=== PATIENT | male | born 1975 | race Caucasian/White ===

== ENCOUNTER 2018-12-26 20:51 | Inpatient (IN) ==
[2018-12-26] MEDS ORDERED: *HR* LORazepam 2 MG/ML VIAL ONE (20:58)
[2018-12-26 21:27] LABS: Basophils # 0.1 K/mcL (0.0-0.2); Basophils % 0.9 %; Eosinophils # 0.5 K/mcL (0.0-0.6); Eosinophils % 3.4 %; Hematocrit 45.7 % (37.5-50.1); Hemoglobin 14.3 g/dL (12.9-16.9); Immature Granulocytes % 0.4 % (0-4); Lymphocytes # 5.2 K/mcL (0.6-4.6); Lymphocytes % 32.9 %; Mean Corpuscular HGB Conc 31.3 g/dL (31.6-35.5); Mean Corpuscular Hemoglobin 28.2 pg (28.0-33.3); Mean Corpuscular Volume 90.1 fL (83.0-100.0); Mean Platelet Volume 8.9 fL (9.4-12.4); Monocytes # 1.4 K/mcL (0.0-1.3); Neutrophils # 8.5 K/mcL (1.6-8.9); Platelet Count 425 K/mcL (140-400); Red Blood Count 5.07 M/mcL (4.19-5.50); Red Cell Distribution Width 12.2 % (11.5-14.5); Segmented Neutrophils % 53.4 %; White Blood Count 15.9 K/mcL (4.3-11.1)
[2018-12-26 21:47] LABS: Acetaminophen < 10 mcg/mL (10-20); BUN/Creatinine Ratio 10 (6-26); Blood Urea Nitrogen 14 mg/dL (6-20); Calcium 9.7 mg/dL (8.6-10.3); Carbon Dioxide 13 mEq/L (23-29); Chloride 97 mEq/L (98-107); Ethanol < 10 mg/dL (Less than 10); Glucose 134 mg/dL (70-105); Osmolality,Calculated 284 (280-300); Potassium 3.6 mEq/L (3.5-5.1); Salicylate < 2.5 mg/dL (15.0-30.0); Sodium 136 mEq/L (136-145); eGFR For African Americans > 60 (> 60); eGFR For Non-African Americans 58 (> 60)
--- NOTE | 2018-12-26 21:52 | Emergency Department Note ---
Disposition Clinical Impression: Status epilepticus Disposition: Admitted As Inpatient Condition: Fair Time of Disposition: 23:45 Seizure HPI - General Stated Complaint: Siezure Time Seen by Provider: 12/26/18 21:03 Source: patient, EMS Mode of arrival: EMS Limitations: altered mental status Nursing Notes Reviewed: Yes Vital Signs Reviewed: Yes - History of Present Illness HPI Narrative: 43-year-old male past medical history of seizure disorder not currently on any medications presenting by EMS immediately after a seizure which occurred at work. 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 EMS states the patient was post ictal but stable during transportation. Upon presentation to the ED patient is alert, he is oriented to self but states that he feels "groggy." Patient is unable to give significant past medical history states that he does not know what medications he is on, our pharmacist is unable to find any current medications listed in the patient's file. Patient was last seen by resident physician Dr. Raymond Benavidez at the [facility] in April 2018, we have no follow- ups listed on file at this time. Patient had nose concerns or complaints during my initial review of systems and physical exam evaluation. Patient has a small laceration noted to his right frontal skull which is appropriately bandaged with a 2 x 2 gauze pad. This wound does not require suturing. After examining the patient leaving the room I was immediately called back by RN due to patient experiencing a repeat generalized tonic-clonic seizure. 2 mg of Ativan was ordered immediately administered to the patient, patient was rolled onto his left side in the left lateral decubitus position and oral suctioning was performed, patient was Reloaded with 1500 mg of Keppra for seizure prophylaxis. Patient did not lose control of bowels or bladder during the incident. Patient will be taken emergently for CT scan of the head and neck, will also undergo lab screening, EKG and chest x-ray. Pt Subjective Complaint: seizure Onset (ago): Just [facility] Description of Episode: loss of consciousness, tonic-clonic movement Witnessed: yes - by other Associated trauma secondary to event: Yes Seizure History: known seizure disorder Place: work Possible Precipitating Event: none Associated symptoms: Reports: denies other symptoms Treatments prior to arrival: none - Related Data Previous Rx's Medication Instructions Recorded Amoxicillin 500 mg PO TID #30 tablet 07/09/16 HYDROcodone/Acet 5/325 mg [[place] 1 tab PO Q6H PRN #10 tab 02/18/17 5-325 mg] Allergies Allergy/AdvReac Type Severity Reaction Status Date / Time tetanus and diphtheria Allergy Rash Verified 07/09/16 13:52 toxoids Review of Systems: *See History of Present Illness for more detail Constitutional: Denies: fever, chills Cardiovascular: Denies: chest pain Respiratory: Denies: dyspnea, cough, hemoptysis Gastrointestinal: Denies: abdominal pain, nausea, vomiting, diarrhea, constipation, hematemesis, melena, hematochezia Genitourinary: Denies: hematuria Musculoskeletal: Denies: back pain, neck pain Neurological: Denies: headache, weakness, lightheadedness/dizziness, numbness, paresthesias, difficulty with ambulation. Endocrine: Denies: fatigue All systems ED: reviewed and negative except as stated. Review of Systems: As Per HPI Past Medical History - Past Medical History Medical history: Reports: no medical history Psychiatric history: Reports: no psych history - Social History Smoking Status: Current every day smoker Smokeless Tobacco Status: Yes Alcohol use: Reports: occasionally Drug use: Reports: marijuana Physical Exam Constitutional: No acute distress, patient is alert to person only is unable to give month, year, or president, he is otherwise engaged to conversation, speech is fluid, answers questions appropriately, however he is unable to remember significant history of present illness or past medical history due to feeling "groggy". Neuro: GCS 15, no overt focal neurological deficits Head: Patient with minor laceration noted front of skull. Eyes: Pupils equal, round and reactive to light, no scleral icterus, no conjunctival injection Neck: Trachea midline without deviation. Anterior neck is supple without swelling. *Chest: Symmetric chest wall rise *Heart: Cardiac rhythm and rate are regular with S1 and S2 , no S3 or S4 appreciated, no murmurs, gallops, rubs, or clicks. *Lungs: Lungs are clear to auscultation bilaterally, without accessory muscle use or prolonged expiratory phase. No wheezes, rhonchi or stridor appreciated. Abdomen: Abdomen is flat, soft to palpation, normal bowel sounds. No abdominal bruit auscultated. Non-distended, non-rigid, no organomegaly, no ascites appreciated. No pulsatile mass, no tenderness or guarding to palpation in all four quadrants, no rebound Extremities: Normal capillary refill without evidence of pedal edema, joint swelling or erythema. Pulses/motor/sensory intact in all 4 extremities. Psychiatric exam: Patient displays a normal affect and mood for the environment. No overt signs of hallucination. Integumentary: warm, dry, intact, normal color. No rash, cyanosis, diaphoresis, erythema, or pallor Course Course Narrative: Concern for intracranial pathology patient will undergo CT scan of the head and neck, basic laboratory workup EKG, x-ray, toxicologies Treatments: IV fluids, Keppra, Ativan - Reevaluation(s) Reevaluation #1: Spoke with Dr. Abraham in neurology regarding current management of this patient. Dr. Abraham states that he has no further recommendations at this time. Dr. Abraham agrees with hospital admission with neurology consult. Neurology is consulted and is following. Vital Signs Temperature 99 F 12/26/18 21:08 Pulse Rate 119 12/26/18 21:08 Respiratory Rate 20 12/26/18 21:08 Blood Pressure 153/83 12/26/18 21:08 O2 Sat by Pulse Oximetry 97 12/26/18 21:08 Temperature 99 F 12/26/18 21:08 Pulse Rate 119 12/26/18 21:08 Respiratory Rate 20 12/26/18 21:08 Blood Pressure 153/83 12/26/18 21:08 O2 Sat by Pulse Oximetry 97 12/26/18 21:08 Oxygen Delivery Oxygen Delivery Oximizer Seizure - MDM Narrative Medical decision making narrative: Patient laboratory results are consistent with status epilepticus EKG, laboratory and imaging results are otherwise unremarkable. Patient appears post ictal in room, no lateralizing deficits appreciated. Patient be admitted to hospitalist medicine service for further evaluation and management of status epilepticus Patient is hemodynamically stable at the time of admission Dr. Barahona accepting admission. - Lab Data Lab results reviewed: Yes I reviewed the patient's lab results. Result diagrams: 12/26/18 21:16 12/26/18 21:16 Lab Results 12/26/18 12/26/18 Range/Units 21:16 21:16 WBC 15.9 H (4.3-11.1) K/mcL RBC 5.07 (4.19-5.50) M/mcL Hgb 14.3 (12.9-16.9) g/dL Hct 45.7 (37.5-50.1) % MCV 90.1 (83.0-100.0) fL MCH 28.2 (28.0-33.3) pg MCHC 31.3 L (31.6-35.5) g/dL RDW 12.2 (11.5-14.5) % Plt Count 425 H (140-400) K/mcL MPV 8.9 L (9.4-12.4) fL Immature Gran % 0.4 (0-4) % Seg Neutrophils % 53.4 % Lymphocytes % 32.9 % Monocytes % 9.0 % Eosinophils % 3.4 % Basophils % 0.9 % Neutrophils # 8.5 (1.6-8.9) K/mcL Lymphocytes # 5.2 H (0.6-4.6) K/mcL Monocytes # 1.4 H (0.0-1.3) K/mcL Eosinophils # 0.5 (0.0-0.6) K/mcL Basophils # 0.1 (0.0-0.2) K/mcL Sodium 136 (136-145) mEq/L Potassium 3.6 (3.5-5.1) mEq/L Chloride 97 L (98-107) mEq/L Carbon Dioxide 13 L (23-29) mEq/L BUN 14 (6-20) mg/dL Creatinine 1.36 H (0.70-1.30) mg/dL Est GFR ( Amer) > 60 (> 60) Est GFR (Non-Af Amer) 58 L (> 60) BUN/Creatinine Ratio 10 (6-26) Glucose 134 H (70-105) mg/dL Calculated Osmolality 284 (280-300) Calcium 9.7 (8.6-10.3) mg/dL Salicylates < 2.5 L (15.0-30.0) mg/dL Acetaminophen < 10 L (10-20) mcg/mL Ethyl Alcohol < 10 (Less than 10) mg/dL - Radiology Data Radiology results reviewed: Yes I reviewed the patient's radiology results. Cervical Spine CT 12/26/18 21:06 IMPRESSION: Head CT: No acute intracranial abnormality. Cervical spine CT: No acute abnormality. D/ / Al Langford MD / Al Langford MD Interpreting Provider: Al Langford MD Head CT 12/26/18 21:06 IMPRESSION: Head CT: No acute intracranial abnormality. Cervical spine CT: No acute abnormality. D/ / Al Langford MD / Al Langford MD Interpreting Provider: Al Langford MD Chest X-Ray 12/26/18 21:23 IMPRESSION: No acute process. D/ / Al Langford MD / Al Langford MD Interpreting Provider: Al Langford MD - EKG Data EKG attestation: Yes I reviewed and interpreted this EKG. EKG results narrative: Patient EKG shows a sinus tachycardia with left ventricular hypertrophy by voltage criteria with a heart rate of 12 4 bpm ND interval of 139 ms, QRS duration of 80 ms, QT/QTc interval 313/450 ms respectively. There are no significant ST segment elevations compared depressions compatible pathologic Q waves, there are abnormal T-wave inversions noted in lead 3 which may represent a normal variant, there are no signs of acute ischemic change. At this time there is no prior EKG available for comparison.
[2018-12-26] MEDS ORDERED: 0.9 % Sodium Chloride 1,000 ML IVC ONE (21:55)
[2018-12-26] MEDS ORDERED: *HR* LORazepam 2 MG/ML VIAL IVP ONE (21:55)
--- NOTE | 2018-12-26 23:04 | Emergency Department Note ---
Disposition Clinical Impression: Status epilepticus Disposition: Admitted As Inpatient Condition: Fair Time of Disposition: 23:45 General Adult HPI - General Chief complaint: ED Seizure Stated complaint: Siezure Time Seen by Provider: 12/26/18 21:03 Source: patient, EMS Mode of arrival: EMS Limitations: altered mental status Nursing Notes Reviewed: Yes Vital Signs Reviewed: Yes - History of Present Illness Pain Scale: 0 - Related Data Previous Rx's Medication Instructions Recorded Amoxicillin 500 mg PO TID #30 tablet 07/09/16 HYDROcodone/Acet 5/325 mg [[place] 1 tab PO Q6H PRN #10 tab 02/18/17 5-325 mg] Allergies Allergy/AdvReac Type Severity Reaction Status Date / Time tetanus and diphtheria Allergy Rash Verified 07/09/16 13:52 toxoids Past Medical History - Past Medical History Medical history: Reports: hypertension, seizures Psychiatric history: Reports: no psych history - Social History Smoking Status: Current every day smoker Smokeless Tobacco Status: Yes Alcohol use: Reports: occasionally Drug use: Reports: marijuana Physical Exam - General Limitations: altered mental status General appearance: alert, in no apparent distress Course Vital Signs Temperature 99 F 12/26/18 21:08 Pulse Rate 119 12/26/18 21:08 Respiratory Rate 20 12/26/18 21:08 Blood Pressure 153/83 12/26/18 21:08 O2 Sat by Pulse Oximetry 97 12/26/18 21:08 Temperature 99 F 12/26/18 21:08 Pulse Rate 95 12/27/18 00:03 Respiratory Rate 18 12/27/18 00:03 Blood Pressure 146/113 12/27/18 00:03 O2 Sat by Pulse Oximetry 100 12/27/18 00:03 Oxygen Delivery Oxygen Delivery Oximizer Medical Decision Making - Medical Records Medical records reviewed: Yes I reviewed the patient's medical records. - Lab Data Lab results reviewed: Yes I reviewed the patient's lab results. Result diagrams: 12/26/18 21:16 12/26/18 21:16 Lab Results 12/26/18 12/26/18 Range/Units 21:16 21:16 WBC 15.9 H (4.3-11.1) K/mcL RBC 5.07 (4.19-5.50) M/mcL Hgb 14.3 (12.9-16.9) g/dL Hct 45.7 (37.5-50.1) % MCV 90.1 (83.0-100.0) fL MCH 28.2 (28.0-33.3) pg MCHC 31.3 L (31.6-35.5) g/dL RDW 12.2 (11.5-14.5) % Plt Count 425 H (140-400) K/mcL MPV 8.9 L (9.4-12.4) fL Immature Gran % 0.4 (0-4) % Seg Neutrophils % 53.4 % Lymphocytes % 32.9 % Monocytes % 9.0 % Eosinophils % 3.4 % Basophils % 0.9 % Neutrophils # 8.5 (1.6-8.9) K/mcL Lymphocytes # 5.2 H (0.6-4.6) K/mcL Monocytes # 1.4 H (0.0-1.3) K/mcL Eosinophils # 0.5 (0.0-0.6) K/mcL Basophils # 0.1 (0.0-0.2) K/mcL Sodium 136 (136-145) mEq/L Potassium 3.6 (3.5-5.1) mEq/L Chloride 97 L (98-107) mEq/L Carbon Dioxide 13 L (23-29) mEq/L BUN 14 (6-20) mg/dL Creatinine 1.36 H (0.70-1.30) mg/dL Est GFR ( Amer) > 60 (> 60) Est GFR (Non-Af Amer) 58 L (> 60) BUN/Creatinine Ratio 10 (6-26) Glucose 134 H (70-105) mg/dL Calculated Osmolality 284 (280-300) Calcium 9.7 (8.6-10.3) mg/dL Salicylates < 2.5 L (15.0-30.0) mg/dL Acetaminophen < 10 L (10-20) mcg/mL Ethyl Alcohol < 10 (Less than 10) mg/dL - Radiology Data Radiology results reviewed: Yes I reviewed the patient's radiology results. Cervical Spine CT 12/26/18 21:06 IMPRESSION: Head CT: No acute intracranial abnormality. Cervical spine CT: No acute abnormality. D/ / Al Langford MD / Al Langford MD Interpreting Provider: Al Langford MD Head CT 12/26/18 21:06 IMPRESSION: Head CT: No acute intracranial abnormality. Cervical spine CT: No acute abnormality. D/ / Al Langford MD / Al Langford MD Interpreting Provider: Al Langford MD Chest X-Ray 12/26/18 21:23 IMPRESSION: No acute process. D/ / Al Langford MD / Al Langford MD Interpreting Provider: Al Langford MD - EKG Data EKG #1 EKG attestation: Yes I reviewed and interpreted this EKG. EKG results narrative: EKG showed sinus tachycardia with ventricular rate of 124. Mild inferior ST segment depressions. No ST elevations. No ectopy. Critical Care Time Critical Care Time: Yes Total Critical Care Time: 40 Attestation: Critical care performed: Time is exclusive of separately billable procedures. Time includes: direct pa tient care, patient reassessment, coordination of patient care, interpretation of data (laboratory data, radiology data, and respiratory data), review of patient's medical records, medical consultation and documentation of patient care. Procedures included in critical care time: Procedures excluded from critical care time: Attestation Statement - Attestation Attestation: I, Musa Gaming MD, personally evaluated this patient and discussed their management with the resident physician. I reviewed the resident's note and agree with the documented findings, medical decision making, and plan of care. I reviewed the residents documentation and agree with the residents assessment and plan of care. I have personally had face to face time with the patient. I personally supervised and was present for the mustafa/critical portions of the following procedures completed by the resident: EKG interpretation. 43-year-old male presents to the emergency department by EMS after he had a witnessed seizure shortly prior to arrival. Patient was at work when he apparently leaned over the bar and had a seizure and fell striking his head. The seizure reported lasted about a minute and resolved. Patient then woke up after the seizure. On arrival here the patient was alert but then shortly after arrival patient had a seizure here in the emergency department. This was a generalized tonic-clonic seizure which lasted about 30 seconds and then resolves spontaneously. Patient was postictal with snoring respirations. He did receive Ativan IV and then also received IV Keppra. Patient reportedly has a history of seizures. Girlfriend later arrived and reports that he has had seizures in the past but is not on any medications. She states his last seizure was about 3 years ago when she broke up with him and he had a seizure at that time which she thought was stress-related. Prior to that she thinks it was about 15 years ago when he had his last seizure. She states he is supposed to take blood pressure medication but has not been taking it recently. On examination patient is a well-developed well-nourished male who is postictal. He has snoring respirations. There is contusion and abrasions to the right forehead from where he fell earlier with the seizure prior to arrival. PERRLA. Mucous members are moist. Neck is supple. No lymphadenopathy. Breath sounds are clear and equal bilaterally. Heart regular with a mild tachycardia. Abdomen is soft with normal bowel sounds. No pedal edema. Labs reviewed. Chest x-ray negative. CT of the head and cervical spine was negative. EKG showed sinus tachycardia with ventricular rate of 124. Mild i nferior ST segment depressions. No ST elevations. No ectopy. The neurologist health and safety consultant, Dr. Abraham, was consulted and agreed with the treatment and recommended admission by the hospitalist and neurology will consult on the patient. The hospitalist, Dr. Barahona, was consulted and accepted admission of the patient.
[2018-12-26] MEDS ORDERED: *HR* LORazepam 2 MG/ML VIAL IVP PRN (23:34)
[2018-12-26] MEDS ORDERED: Acetaminophen 325 MG TABLET PO PRN (23:35)
[2018-12-26] MEDS ORDERED: Ketorolac 30 MG/ML VIAL IVP ONE (23:35)
[2018-12-26] MEDS ORDERED: traMADol 50 MG TABLET PO PRN (23:39)
[2018-12-26] MEDS ORDERED: Naloxone 0.4 MG/ML INJ IVP PRN (23:39)
--- NOTE | 2018-12-27 00:09 | Internal Med History&Physical ---
Date of Encounter: 12/26/18 Time of Encounter: 23:59 Internal Medicine - H&P: HPI Chief complaint: seizure Admitted From: Home Plans for Post Hospital Care: Home History of present illness: Isaiah Frost is a 43-year-old male with seizure disorder decrements in his teenage years and is not currently on any anti-epileptic agents stating that his last seizure was about 3 years ago and is typically precipitated by stressful situations. He is brought in by EMS after suffering a seizure episode at work at [employer] where he fell and struck his head during the seizure episode for about 1 minute described as generalized tonic-clonic movements. EMS reported that he was post ictal but stable during transportation as per the ED physician at the time of his assessment he was clinically stable. He had a small laceration on his right frontal head which was bandaged and cleaned however he subsequently suffered another generalized clonic tonic seizure in the emergency room which required 2 mg of lorazepam. He was also given loading dose of levetiracetam. No loss of sphincter control was noted or tongue biting. Urology was consulted and he is admitted for further care. At the time of my assessment he is able to tell me where he is unsure of what happened as he is lethargic. He complains of muscle ache and back pain. He denies illicit drug use and alcohol use. Vitals: Reviewed General: All developed white male sitting up in bed in no acute distress. Skin: Abrasion noted on the right frontal head. Flushed. HEENT: Moist mucous membranes. No conjunctivae pallor. Neck: No lymphadenopathy. No JVD. No carotid bruits. No palpable thyroid. Chest: Normal thoracic expansion. Normal breath sounds. Clear to auscultation. Heart: Normal S1 & S2; rhythmic. No rubs or murmurs. Abdomen: Non-distended, soft and non-tender to palpation. No peritoneal reaction. Extremities: No clubbing, cyanosis or edema. No calf tenderness. Normal distal pulses. Neurological: Somnolent but arousable with verbal stimuli and oriented to person, place. No focal deficits apparent. Psych: Affect appropriate. Assessment/Plan 1. Seizure disorder: The patient has developed a change in pattern with 2 seizure episodes in 1 day while his last seizure was 3 years ago. The precipitating factor is unclear as there is no evidence of alcohol or illicit drug use but his girlfriend reports he has been under stressful situations at work. He has required the use of IV anticonvulsants and will need frequent neurochecks over the next 24 hours given his mental status changes and therefore meets inpatient criteria. Will keep him NPO, seizure precautions, lorazepam prn and neurology consult. Start Keppra 500mg BID following loading dose. 2. Leukocytosis: Likely reactionary from the seizure episodes. No evidence of infection present. Will monitor. 3. DVT prophylaxis: Antiembolic stockings. Past Med Surg Social Fam HX - Past Medical History Medical history: hypertension, seizures Psychiatric history: no psych history - Past Surgical History Additional surgical history: HAND/WRIST and right knee SURGERY - Social History Smoking Status: Current every day smoker Smokeless Tobacco Status: Yes Alcohol use: occasionally Drug use: marijuana Internal Medicine - H&P: Meds Amoxicillin 500 mg PO TID #30 tablet 07/09/16 [Rx] HYDROcodone/Acet 5/325 mg [[place] 5-325 mg] 1 tab PO Q6H PRN #10 tab 02/18/17 [Rx] Allergy/AdvReac Type Severity Reaction Status Date / Time tetanus and diphtheria Allergy Rash Verified 07/09/16 13:52 toxoids All Systems PM: A 10-system review of systems was performed and is negative for pertinent fin dings except as documented above in the HPI. Family history reviewed and found non-contributory. - Constitutional Vitals: Temp Pulse Resp BP Pulse Ox 99 F 95 18 146/113 100 12/26/18 21:08 12/27/18 00:03 12/27/18 00:03 12/27/18 00:03 12/27/18 00:03 Exam: . Internal Med - H&P Results - Labs CBC & Chem 7: 12/26/18 21:16 12/26/18 21:16 Labs: Short CBC 12/26/18 Range/Units 21:16 WBC 15.9 H (4.3-11.1) K/mcL Hgb 14.3 (12.9-16.9) g/dL Hct 45.7 (37.5-50.1) % Plt Count 425 H (140-400) K/mcL Neutrophils # 8.5 (1.6-8.9) K/mcL BMP 12/26/18 21:16 Sodium 136 Potassium 3.6 Chloride 97 L Carbon Dioxide 13 L BUN 14 Creatinine 1.36 H Glucose 134 H Calcium 9.7 - Impressions ITS Impressions Cervical Spine CT 12/26/18 21:06 IMPRESSION: Head CT: No acute intracranial abnormality. Cervical spine CT: No acute abnormality. D/ / Al Langford MD / Al Langford MD Interpreting Provider: Al Langford MD Head CT 12/26/18 21:06 IMPRESSION: Head CT: No acute intracranial abnormality. Cervical spine CT: No acute abnormality. D/ / Al Langford MD / Al Langford MD Interpreting Provider: Al Langford MD Chest X-Ray 12/26/18 21:23 IMPRESSION: No acute process. D/ / Al Langford MD / Al Langford MD Interpreting Provider: Al Langford MD - Time Spent With Patient Total time spent is greater than 50% in coordination of care (as documented) at patient's floor/unit and/or counseling patient: Greater than 35 minutes
[2018-12-27 00:23] LABS: Bilirubin,Urine Negative (Negative); Blood,Urine Trace (Negative); Clarity,Urine Clear (Clear); Color,Urine Yellow (Yellow); Glucose,Urine (UA) Normal (Normal); Ketones,Urine Negative (Negative); Leukocyte Esterase,Urine Negative (Negative); Nitrite,Urine Negative (Negative); Protein,Urine Trace mg/dL (Neg-Trace); Specific Gravity,Urine 1.014 (1.010-1.025); Urobilinogen,Urine Normal (Normal)
[2018-12-27 00:27] LABS: Bacteria,Urine None Seen per hpf (None-Few); Hyaline Casts,Urine None Seen per lpf (None-Few); RBC,Urine 0-3 per hpf (0-3); Squamous Epithelial Cell,Urine Moderate per lpf (None-Few); WBC,Urine 0-3 per hpf (0-3)
[2018-12-27 00:32] LABS: Amphetamine Screen,Urine Positive ng/mL (Cutoff=1000); Barbiturate Screen,Urine Negative ng/mL (Cutoff=200); Benzodiazepines Screen,Urine Negative ng/mL (Cutoff=200); Cannabinoid Screen,Urine Positive ng/mL (Cutoff = 50); Cocaine Screen,Urine Negative ng/mL (Cutoff= 300); Opiate Screen,Urine Negative ng/mL (Cutoff=300); Phencyclidine Screen,Urine Negative ng/mL (Cutoff=25)
[2018-12-27] MEDS: Ringers Solution, Lactated 1,000 ML IVC SCH ×4 (00:45→19:55)
[2018-12-27 04:28] LABS: Basophils # 0.1 K/mcL (0.0-0.2); Basophils % 0.4 %; Eosinophils # 0.4 K/mcL (0.0-0.6); Eosinophils % 2.4 %; Hemoglobin 13.5 g/dL (12.9-16.9); Immature Granulocytes % 0.3 % (0-4); Lymphocytes % 13.5 %; Mean Corpuscular HGB Conc 32.9 g/dL (31.6-35.5); Mean Corpuscular Hemoglobin 28.1 pg (28.0-33.3); Mean Corpuscular Volume 85.2 fL (83.0-100.0); Mean Platelet Volume 8.7 fL (9.4-12.4); Monocytes % 6.7 %; Neutrophils # 11.6 K/mcL (1.6-8.9); Platelet Count 366 K/mcL (140-400); Red Blood Count 4.81 M/mcL (4.19-5.50); Red Cell Distribution Width 12.2 % (11.5-14.5); Segmented Neutrophils % 76.7 %; White Blood Count 15.1 K/mcL (4.3-11.1)
[2018-12-27 04:35] LABS: Prothrombin Time 11.6 Seconds (9.4-12.1)
[2018-12-27 04:38] LABS: Activated Partial Thrombo Time 30.1 Seconds (26.0-36.0)
[2018-12-27 04:49] LABS: Alanine Aminotransferase 17 Units/L (7-52); Albumin 3.9 g/dL (3.5-5.7); Albumin/Globulin Ratio 1.7 (1.1-2.2); Alkaline Phosphatase 78 Units/L (34-104); Aspartate Amino Transferase 24 Units/L (13-39); BUN/Creatinine Ratio 12 (6-26); Bilirubin,Direct 0.1 mg/dL (0.0-0.2); Bilirubin,Indirect 0.4 mg/dL (0.0-1.2); Bilirubin,Total 0.5 mg/dL (0.3-1.0); Blood Urea Nitrogen 11 mg/dL (6-20); Calcium 8.7 mg/dL (8.6-10.3); Carbon Dioxide 26 mEq/L (23-29); Chloride 107 mEq/L (98-107); Globulin 2.3 g/dL (2.4-3.5); Glucose 104 mg/dL (70-105); Magnesium 2.1 mg/dL (1.6-2.6); Osmolality,Calculated 288 (280-300); Phosphorous 2.6 mg/dL (2.7-4.5); Potassium 3.5 mEq/L (3.5-5.1); Sodium 139 mEq/L (136-145); Total Protein 6.2 g/dL (6.4-8.9); eGFR For African Americans > 60 (> 60); eGFR For Non-African Americans > 60 (> 60)
[2018-12-27] MEDS: levETIRAcetam 250 MG TABLET PO SCH ×2 (05:28→17:43)
--- NOTE | 2018-12-27 09:01 | Internal Med Progress Note ---
Hospitalist Progress Note - Encounter Date of Encounter: 12/27/18 Time of Encounter: 08:56 - Subjective Interval History: Patient seen and examined with girlfriend present. Pt and girlfriend were sleeping comfortably in bed. Patient is easily arousable but continued to drift into sleep during my evaluation. Girlfriend asking the patient to stay awake and answer my questions. He is alert, oriented to self, place, but not time. Girlfriend states that's how he was last night. No seizures reported after the witnessed episodes in the ER. Unable to obtain detailed ROS due to patient's somnolent status - Exam Vitals: Temp Pulse Resp BP Pulse Ox 97.4 F L 77 15 132/85 98 12/27/18 06:50 12/27/18 06:50 12/27/18 06:50 12/27/18 06:50 12/27/18 06:50 Exam: General: No acute distress, AAO x 2, somnolent but easily arousable HEENT: EOMI, PERRLA, NC/AT, no scleral icterus, poor oral hygiene Respiratory: Clear to auscultate bilaterally, no wheezing, no rales Cardiovascular: Regular, Rate, Rhythm, No murmurs GI: Soft, Non tender, non distended, normal bowel sounds Ext: No edema, no tenderness, positive pulses Neuro: AAO x 3, no focal deficits Rest of the clinical exam is noncontributory - Summary of Assessment and Plan Summary of Assessment and Plan: Patient is a 43y/o male with hx of seizure disorder who is admitted for multiple seizure episodes. Assessment/Plan: 1. Seizure disorder Pt received Lorazepam and loading dose Keppra in the ER yesterday Continue Keppra 500mg PO BID neurology evaluation has been requested Lorazepam prn seizures Tox screen positive for amphetamines and marijuana, which likely contributed to the acute seizure episodes yesterday 2. Rhabdomyolysis elevated CK, given hx of fall s/p witness tonic clonic seizure continue IV fluids closely monitor CK levels and renal function 3. PAZ resolved continue to monitor 4. Leukocytosis likely reactive no infectious etiology present at this time monitor off abx at this time 5. DVT ppx: SCSs. - Time Spent with Patient Total time spent is greater than 50% in coordination of care (as documented) at patient's floor/unit and/or counseling patient: Internal Medicine: Result - Labs CBC & Chem 7: 12/27/18 04:07 12/27/18 04:07 Labs: Short CBC 12/26/18 12/27/18 Range/Units 21:16 04:07 WBC 15.9 H 15.1 H (4.3-11.1) K/mcL Hgb 14.3 13.5 (12.9-16.9) g/dL Hct 45.7 41.0 (37.5-50.1) % Plt Count 425 H 366 (140-400) K/mcL Neutrophils # 8.5 11.6 H (1.6-8.9) K/mcL BMP 12/26/18 12/27/18 21:16 04:07 Sodium 136 139 Potassium 3.6 3.5 Chloride 97 L 107 Carbon Dioxide 13 L 26 BUN 14 11 Creatinine 1.36 H 0.93 Glucose 134 H 104 Calcium 9.7 8.7 Liver Function 12/27/18 Range/Units 04:07 Total Bilirubin 0.5 (0.3-1.0) mg/dL Direct Bilirubin 0.1 (0.0-0.2) mg/dL AST 24 (13-39) Units/L ALT 17 (7-52) Units/L Alkaline Phosphatase 78 (34-104) Units/L Albumin 3.9 (3.5-5.7) g/dL Urine 12/27/18 Range/Units 00:00 Urine Color Yellow (Yellow) Urine Clarity Clear (Clear) Urine pH 6.0 (5.0-8.0) pH Units Ur Specific [place] 1.014 (1.010-1.025) Urine Protein Trace (Neg-Trace) mg/dL Urine Glucose (UA) Normal (Normal) mg/dL - ABG Interpretation ABG results: PT/INR, D-dimer PT 11.6 Seconds (9.4-12.1) 12/27/18 04:07 - Impressions Impressions Cervical Spine CT 12/26/18 21:06 IMPRESSION: Head CT: No acute intracranial abnormality. Cervical spine CT: No acute abnormality. D/ / Al Langford MD / Al Langford MD Interpreting Provider: Al Langford MD Head CT 12/26/18 21:06 IMPRESSION: Head CT: No acute intracranial abnormality. Cervical spine CT: No acute abnormality. D/ / Al Langford MD / Al Langford MD Interpreting Provider: Al Langford MD Chest X-Ray 12/26/18 21:23 IMPRESSION: No acute process. D/ / Al Langford MD / Al Langford MD Interpreting Provider: Al Langford MD Consult Discharge Plan - Plan Referrals: NONE,PCP [Primary Care Provider] -
[2018-12-27] MEDS ORDERED: *HR* LORazepam 2 MG/ML VIAL IVP PRN ×2 (13:20)
--- NOTE | 2018-12-27 15:25 | Neurology - Consult Note ---
Date of Encounter: 12/27/18 Time of Encounter: 15:22 Assessment and Plan (1) Spell of altered consciousness Current Visit: Yes Status: Acute His my suspicion that this patient likely does have a history of nonepileptic seizures i.e. pseudoseizures. However unfortunately I am not privy to the assessments of other providers at this time. He states he only has these events whenever he is under stress. I am not certain whether not other providers would not convinced that is truly having seizures or whether not he simply been noncompliant and has been lost to follow-up. However his urine drug screen was positive for amphetamine which is certainly possible cause for seizure. At this juncture I would simply recommend MRI scan of the brain and EEG. He has already been started on Keppra 500 mg twice a day which I recommend he maintain for now. Further recommendations will be made pending the MRI and EEG. History of Present Illness HPI: The chart was reviewed, the patient was seen and examined. Mr. Frost is a 43 year old male who is being seen for neurologic consultation secondary to questionable seizure activity. History is somewhat scant and the patient has questionable reliability. In regard he states that he has seizures primarily whenever he gets "stressed out". Patient is not very sophisticated infrequently uses profanity to express himself. He is also attempting to leave AGAINST ME DICAL ADVICE. He does have an abrasion on the right frontal region of his forehead. He states that he bit his tongue however I am not able to identify any evidence of an abrasion on his tongue at all. His my understanding that patient has had numerous evaluations for seizures in the past however he is not on seizure medications and I am unable to verify anyone else's assessment of him at this time. UDS was positive for amphetamines and marijuana. Past Med Surg Social Fam HX - Past Medical History Medical history: hypertension, seizures Psychiatric history: no psych history - Past Surgical History Surgical History: other Additional surgical history: HAND/WRIST and right knee SURGERY - Social History Smoking Status: Current some day smoker Smokeless Tobacco Status: Yes Alcohol use: occasionally Drug use: marijuana - Family History Mother History Unknown: Yes Father History Unknown: Yes Medications and Allergies Amlodipine Besylate 2.5 mg PO DAILY 12/27/18 [History] Allergy/AdvReac Type Severity Reaction Status Date / Time tetanus and diphtheria Allergy Rash Verified 12/27/18 00:56 toxoids All Systems: The remainder of the systems were reviewed and are negative Review of Systems: The balance of the systems review is negative. Physical Examination - Vital Signs Vital Signs: Initial Vital Signs Temp Pulse Resp BP Pulse Ox 99 F 119 20 153/83 97 12/26/18 21:08 12/26/18 21:08 12/26/18 21:08 12/26/18 21:08 12/26/18 21:08 - Exam Exam: General Examination: *CONSTITUTIONAL: normal *GENERAL APPEARANCE OF PATIENT patient is lacking basic hygiene, poor oral hygiene, patient has an abrasion on the right forehead *EYES: pupils equal, round, reactive to light and accommodation, conjunctiva clear without masses or ulcerations, fundi normal. *CARDIOVASCULAR no peripheral edema, distal temperature normal, dorsalis pedis pulses normal. Refer to vital signs Musculoskeletal: *GAIT AND STATION normal, with normal Romberg testing, no abnormalities such as broad base gait or spasticity *ASSESSMENT OF MUSCLE STRENGTH IN THE UPPER AND LOWER EXTREMITIES deltoid, bicep, tricep, electronics research engineer strength, hip flexors ,anterior tibialis, dorsoflexion of the foot normal. *MUSCLE TONE IN THE UPPER AND LOWER EXTREMITIES normal. No abnormal movements, fasciculations or atrophy identified. Neurological: *ORIENTATION to time and place *RECURRENT AND REMOTE MEMORY intact *ATTENTION AND CONCENTRATION are normal *LANGUAGE FUNCTION no significant aphasia or dysarthia was noted. *FUND OF KNOWLEDGE patient uses profanity seems to not have a complete grasp on the significance of the situation. He is threatening to leave AGAINST MEDICAL ADVICE. *MENTAL attention span and concentration normal. *CN II optic fundi were normal, no papilledema noted. *CN III,IV, PERRLA extraocular eye movements were full, no nystagmus and no ptosis noted. *CN V shows normal sensation and jaw opens symmetrically. *CN VII shows normal facial movement symmetrically, upper and lower bilaterally. *CN VIII shows no significant hearing loss on examination in the office. *CN IX,,X palate elevated symmetrically and normal gag reflex was noted. *CN XI normal strength in the sternocleidomastoid muscles, symmetrical shoulder shrugging. *CN XII tongue protruded in the midline, with normal strength and movement. *SENSORY EXAMINATION pinprick sensation intact, and light touch(vibration sense). *REFLEXES: deep tendon reflexes were normal and symmetrical , grade 2/4 diffusely, no pathological reflexes were noted. *CEREBELLAR TESTING normal finger to nose, heel/knee/reyes, and tandem walk. *PAIN LEVEL 0 Results - Laboratory Findings CBC and BMP: 12/27/18 04:07 12/27/18 04:07 Abnormal lab findings: Abnormal lab results WBC 15.1 K/mcL (4.3-11.1) H 12/27/18 04:07 MCHC 31.3 g/dL (31.6-35.5) L 12/26/18 21:16 Plt Count 425 K/mcL (140-400) H 12/26/18 21:16 MPV 8.7 fL (9.4-12.4) L 12/27/18 04:07 11.6 K/mcL (1.6-8.9) H 12/27/18 04:07 5.2 K/mcL (0.6-4.6) H 12/26/18 21:16 1.4 K/mcL (0.0-1.3) H 12/26/18 21:16 Chloride 97 mEq/L (98-107) L 12/26/18 21:16 Carbon Dioxide 13 mEq/L (23-29) L 12/26/18 21:16 1.36 mg/dL (0.70-1.30) H 12/26/18 21:16 Est GFR (Non-Af Amer) 58 (> 60) L 12/26/18 21:16 Glucose 134 mg/dL (70-105) H 12/26/18 21:16 Phosphorus 2.6 mg/dL (2.7-4.5) L 12/27/18 04:07 585 Units/L (30-223) H 12/27/18 04:07 6.2 g/dL (6.4-8.9) L 12/27/18 04:07 2.3 g/dL (2.4-3.5) L 12/27/18 04:07 Trace (Negative) H 12/27/18 00:00 Ur Squamous Epith Cells Moderate per lpf (None-Few) H 12/27/18 00:00 Salicylates < 2.5 mg/dL (15.0-30.0) L 12/26/18 21:16 Acetaminophen < 10 mcg/mL (10-20) L 12/26/18 21:16 Ur Amphetamines Screen Positive ng/mL (Rxvozo=[id number]) H 12/27/18 00:00 U Marijuana (THC) Screen Positive ng/mL (Cutoff = 50) H 12/27/18 00:00 Consult Discharge Plan - Plan Referrals: NONE,PCP [Primary Care Provider] -
[2018-12-28] MEDS: levETIRAcetam 250 MG TABLET PO SCH (05:05)
[2018-12-28 05:27] LABS: Basophils # 0.1 K/mcL (0.0-0.2); Basophils % 0.8 %; Eosinophils # 0.6 K/mcL (0.0-0.6); Eosinophils % 4.7 %; Hematocrit 42.9 % (37.5-50.1); Hemoglobin 14.1 g/dL (12.9-16.9); Immature Granulocytes % 0.3 % (0-4); Lymphocytes % 16.8 %; Mean Corpuscular HGB Conc 32.9 g/dL (31.6-35.5); Mean Corpuscular Hemoglobin 28.2 pg (28.0-33.3); Mean Corpuscular Volume 85.8 fL (83.0-100.0); Mean Platelet Volume 8.7 fL (9.4-12.4); Monocytes # 0.9 K/mcL (0.0-1.3); Monocytes % 7.7 %; Neutrophils # 8.1 K/mcL (1.6-8.9); Platelet Count 345 K/mcL (140-400); Red Cell Distribution Width 12.3 % (11.5-14.5); Segmented Neutrophils % 69.7 %; White Blood Count 11.6 K/mcL (4.3-11.1)
[2018-12-28 05:49] LABS: BUN/Creatinine Ratio 7 (6-26); Blood Urea Nitrogen 7 mg/dL (6-20); Calcium 8.7 mg/dL (8.6-10.3); Carbon Dioxide 25 mEq/L (23-29); Chloride 102 mEq/L (98-107); Creatine Kinase 518 Units/L (30-223); Glucose 134 mg/dL (70-105); Magnesium 1.9 mg/dL (1.6-2.6); Osmolality,Calculated 284 (280-300); Potassium 3.2 mEq/L (3.5-5.1); Sodium 137 mEq/L (136-145); eGFR For African Americans > 60 (> 60); eGFR For Non-African Americans > 60 (> 60)
[2018-12-28] MEDS: Ringers Solution, Lactated 1,000 ML IVC SCH (07:45)
[2018-12-28] MEDS ORDERED: amLODIPine 5 MG TABLET PO SCH (09:00)
--- NOTE | 2018-12-28 10:38 | Neurology Progress Note ---
Date of Encounter: 12/28/18 Time of Encounter: 10:36 Assessment and Plan (1) Spell of altered consciousness Current Visit: Yes Status: Acute Patient has had no further episodes of altered consciousness since admission. I remain convinced that this was more than likely a nonepileptic seizure, or perhaps a physiologic seizure secondary to the amphetamine use. In any regard further recognitions will be made after the EEG is been completed. For now I will recommend he maintain the Keppra 500 mg twice a day. Subjective Interval history: Chart reviewed, patient seen and examined. Upon my entering the room he was sleeping with the covers pulled over his head. He is aroused to voice. He remains typically obnoxious stating he wants to get the "F" out of here. However he follows commands and answers questions otherwise appropriately. Denies any new complaints. EEG is still pending. Objective - Constitutional Vitals: Temp Pulse Resp BP Pulse Ox 97.8 F 94 14 153/89 99 12/28/18 10:12/28/18 10:12/28/18 10:12/28/18 10:12/28/18 10:19 Exam: Exam: General Examination: *CONSTITUTIONAL: normal *GENERAL APPEARANCE OF PATIENT patient is lacking basic hygiene, poor oral hygiene, patient has an abrasion on the right forehead *EYES: pupils equal, round, reactive to light and accommodation, conjunctiva clear without masses or ulcerations, fundi normal. *CARDIOVASCULAR no peripheral edema, distal temperature normal, dorsalis pedis pulses normal. Refer to vital signs Musculoskeletal: *GAIT AND STATION normal, with normal Romberg testing, no abnormalities such as broad base gait or spasticity *ASSESSMENT OF MUSCLE STRENGTH IN THE UPPER AND LOWER EXTREMITIES deltoid, bicep, tricep, seed tester strength, hip flexors ,anterior tibialis, dorsoflexion of the foot normal. *MUSCLE TONE IN THE UPPER AND LOWER EXTREMITIES normal. No abnormal movements, fasciculations or atrophy identified. Neurological: *ORIENTATION to time and place *RECURRENT AND REMOTE MEMORY intact *ATTENTION AND CONCENTRATION are normal *LANGUAGE FUNCTION no significant aphasia or dysarthia was noted. *FUND OF KNOWLEDGE patient uses profanity seems to not have a complete grasp on the significance of the situation. He is threatening to leave AGAINST MEDICAL ADVICE. *MENTAL attention span and concentration normal. *CN II optic fundi were normal, no papilledema noted. *CN III,IV, PERRLA extraocular eye movements were full, no nystagmus and no ptosis noted. *CN V shows normal sensation and jaw opens symmetrically. *CN VII shows normal facial movement symmetrically, upper and lower bilaterally. *CN VIII shows no significant hearing loss on examination in the office. *CN IX,,X palate elevated symmetrically and normal gag reflex was noted. *CN XI normal strength in the sternocleidomastoid muscles, symmetrical shoulder shrugging. *CN XII tongue protruded in the midline, with normal strength and movement. *SENSORY EXAMINATION pinprick sensation intact, and light touch(vibration sense). *REFLEXES: deep tendon reflexes were normal and symmetrical , grade 2/4 diffusely, no pathological reflexes were noted. *CEREBELLAR TESTING normal finger to nose, heel/knee/reyes, and tandem walk. *PAIN LEVEL 0 Results - Laboratory Findings CBC and BMP: 12/28/18 05:12 12/28/18 05:12 Abnormal lab findings: Abnormal lab results WBC 11.6 K/mcL (4.3-11.1) H 12/28/18 05:12 MCHC 31.3 g/dL (31.6-35.5) L 12/26/18 21:16 Plt Count 425 K/mcL (140-400) H 12/26/18 21:16 MPV 8.7 fL (9.4-12.4) L 12/28/18 05:12 11.6 K/mcL (1.6-8.9) H 12/27/18 04:07 5.2 K/mcL (0.6-4.6) H 12/26/18 21:16 1.4 K/mcL (0.0-1.3) H 12/26/18 21:16 Potassium 3.2 mEq/L (3.5-5.1) L 12/28/18 05:12 Chloride 97 mEq/L (98-107) L 12/26/18 21:16 Carbon Dioxide 13 mEq/L (23-29) L 12/26/18 21:16 1.36 mg/dL (0.70-1.30) H 12/26/18 21:16 Est GFR (Non-Af Amer) 58 (> 60) L 12/26/18 21:16 Glucose 134 mg/dL (70-105) H 12/28/18 05:12 Phosphorus 2.6 mg/dL (2.7-4.5) L 12/27/18 04:07 518 Units/L (30-223) H 12/28/18 05:12 6.2 g/dL (6.4-8.9) L 12/27/18 04:07 2.3 g/dL (2.4-3.5) L 12/27/18 04:07 Trace (Negative) H 12/27/18 00:00 Ur Squamous Epith Cells Moderate per lpf (None-Few) H 12/27/18 00:00 Salicylates < 2.5 mg/dL (15.0-30.0) L 12/26/18 21:16 Acetaminophen < 10 mcg/mL (10-20) L 12/26/18 21:16 Ur Amphetamines Screen Positive ng/mL (Yloohy=[id number]) H 12/27/18 00:00 U Marijuana (THC) Screen Positive ng/mL (Cutoff = 50) H 12/27/18 00:00 Consult Discharge Plan - Plan Referrals: NONE,PCP [Primary Care Provider] -
--- NOTE | 2018-12-28 13:35 | Internal Med Progress Note ---
Hospitalist Progress Note - Encounter Date of Encounter: 12/28/18 Time of Encounter: 08:32 - Subjective Interval History: patient was seen and examined at bedside. all questions answered. denies N/v/D. denies LOc or seizure like activity. all questions answered. understands that we are waiting for MRI head and EEG to be completed. - Exam Vitals: Temp Pulse Resp BP Pulse Ox 97.8 F 94 14 153/89 99 12/28/18 10:19 12/28/18 10:19 12/28/18 10:19 12/28/18 10:19 12/28/18 10:19 Exam: General: No acute distress, AAO x 2, somnolent but easily arousable HEENT: EOMI, PERRLA, NC/AT, no scleral icterus, poor oral hygiene, has ecchymosis and bruising of the right side of forehead, healing. Respiratory: Clear to auscultate bilaterally, no wheezing, no rales Cardiovascular: Regular, Rate, Rhythm, No murmurs GI: Soft, Non tender, non distended, normal bowel sounds Ext: No edema, no tenderness, positive pulses Neuro: AAO x 3, no focal deficits Rest of the clinical exam is noncontributory - Assessment and Plan (1) Spell of altered consciousness Current Visit: Yes Status: Acute (2) Seizure disorder Current Visit: Yes Status: Acute (3) Rhabdomyolysis Current Visit: Yes Status: Acute (4) PAZ (acute kidney injury) Current Visit: Yes Status: Acute (5) Leukocytosis Current Visit: Yes Status: Acute - Summary of Assessment and Plan Summary of Assessment and Plan: Patient is a 43y/o male with hx of seizure disorder who is admitted for multiple seizure episodes. Assessment/Plan: 1. Seizure disorder Pt received Lorazepam and loading dose Keppra in the ER yesterday Continue Keppra 500mg PO BID neurology evaluation has been requested Lorazepam prn seizures Tox screen positive for amphetamines and marijuana, which likely contributed to the acute seizure episodes- SW on board to provide resources MRi and EEG pending seziure, fall, aspiration precaution 2. Rhabdomyolysis elevated CK, given hx of fall s/p witness tonic clonic seizure refusing IVF was encouraged on oral hydration CPK 585 to 518 3. PAZ resolved continue to monitor 4. Leukocytosis likely reactive/ afebrile no infectious etiology present at this time ( UA negative , CXR No acute process.) monitor off abx at this time 5. hypokalemia: replaced DVT prophylaxis: scds - Time Spent with Patient Total time spent is greater than 50% in coordination of care (as documented) at patient's floor/unit and/or counseling patient: 25 - 35 minutes Plan of Care Discussed with: patient Internal Medicine: Result - Labs CBC & Chem 7: 12/28/18 05:12 12/28/18 05:12 Labs: Short CBC 12/28/18 Range/Units 05:12 WBC 11.6 H (4.3-11.1) K/mcL Hgb 14.1 (12.9-16.9) g/dL Hct 42.9 (37.5-50.1) % Plt Count 345 (140-400) K/mcL Neutrophils # 8.1 (1.6-8.9) K/mcL BMP 12/28/18 05:12 Sodium 137 Potassium 3.2 L Chloride 102 Carbon Dioxide 25 BUN 7 Creatinine 0.99 Glucose 134 H Calcium 8.7 - ABG Interpretation ABG results: PT/INR, D-dimer PT 11.6 Seconds (9.4-12.1) 12/27/18 04:07 Consult Discharge Plan - Plan Referrals: NONE,PCP [Primary Care Provider] -
[2018-12-28 14:35] VITALS: BP 130/95
--- NOTE | 2018-12-28 17:06 | EEG/EMG/Oth Biometrics Report ---
EEG Procedure Report Date of procedure: 12/28/18 EEG Procedure: Routine EEG Procedure Note: This is a report of a 21 channel bipolar and referential montage EEG. The posterior resting rhythm consisted of beta frequencies in all leads bilaterally for the most part. Occasionally intermixed alpha frequencies identified. He does not attenuate with eye opening. Hyperventilation was not performed in recording. Periods of drowsiness and stage II sleep are identified as reference by dropout of the posterior dominant rhythm and emergence of vertex activity K complexes and sleep spindles. Scintillations performed and does not produce a driving response. The EKG rhythm strip is low voltage however normal sinus rhythm at 84 bpm. Impressions: This EEG recording is within normal limits. There is no evidence of epileptiform activity identified during the study. Comment: Beta frequencies are recognized as a normal variant however may also be reflective of a host of metabolic conditions, anxiety and medication effect. The EKG rhythm strip reveals low voltage throughout. We will defer cardiac consultation the discretion of medicine. Please correlate clinically.
--- NOTE | 2018-12-28 20:55 | Event Note ---
Date of Encounter: 12/28/18 Time of Encounter: 17:33 ralph melendrez was called over head and i was notified by the nursing staff the patient had eloped with IV. ralph melendrez was later cleared by the nuclear station operator. i was not informed that the patient had completely eloped and never found by the hospital staff. i found out that the patient was no longer in the hospital after he was no longer on my patient list. i called the nursing staff and as per nurse on the floor, editor house organ was contacted by the nursing team and they were to call the patient to come back and for the IV line to be removed at that time. i discussed with the nursing staff to continue to try and call the patient to come back to the hospital as the MRI is pending and the EEG report has abnormalities and for the IV to be safely removed.
--- NOTE | 2018-12-30 17:31 | Electrocardiograph Report ---
[address] [place], [place] [address] Test Date: 2018-12-26 Pat Name: Isaiah Frost Department: [id number] Room: 3A31 Gender: M Project Coach: : 1975 Requested By: Tavo Mixon Order Number: [id number] Reading MD: Rose Marie Johnson Measurements Intervals [place] Rate: 124 P: 78 TN: 139 QRS: 82 QRSD: 88 T: -68 QT: 313 QTc: 450 Interpretive Statements Sinus tachycardia Probable LVH with secondary repol abnrm ST depr, consider ischemia, inferior leads Electronically Signed On 12-30-2018 17:30:12 EDT by Rose Marie Johnson
== END 2018-12-28 17:45 | disposition left against medical advice (07) | DRG 53 ==
LOC: EMEROOARM 20:51 → 3ANU 20:51 → SUATTDRO 23:40 → 3ANU 12-27 00:25
PROVIDERS: ADMIT Internal Medicine; ATTEND Internal Medicine